=== PATIENT | female | born 2000 | race African-American/Black ===

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

== ENCOUNTER 2018-02-07 09:47 | Emergency (ER) | payer MEDICAID ==
[~2018-02-07] VITALS: Ht 149.9 cm; Wt 45.0 kg
[2018-02-07] MEDS ORDERED: TRAMADOL 50MG TABLET PO ONE (10:30)
[2018-02-07 11:03] VITALS: BP 111/61
== END 2018-02-07 13:38 | disposition home or self-care (01) ==
LOC: ER 10:31
DX: S40.021A Contusion of right upper arm, initial encounter (principal); R07.81 Pleurodynia; M54.12 Radiculopathy, cervical region; V49.59XA Passenger injured in collision with other motor vehicles in traffic accident, initial encounter; Y93.89 Activity, other specified; Y92.488 Other paved roadways as the place of occurrence of the external cause; R03.0 Elevated blood-pressure reading, without diagnosis of hypertension
CPT/HCPCS: 71101; 73080; 73090; 73130; 81025; 99283

== ENCOUNTER 2019-04-21 13:25 | Emergency (ER) | payer MEDICAID ==
[~2019-04-21] VITALS: Ht 152.4 cm; Wt 42.0 kg
[2019-04-21 13:55] VITALS: BP 116/73
[2019-04-21] MEDS ORDERED: IBUPROFEN 600MG TABLET PO ONE (16:00)
== END 2019-04-21 17:21 | disposition home or self-care (01) ==
LOC: ER 13:25
DX: J02.9 Acute pharyngitis, unspecified (principal)
CPT/HCPCS: 81025; 87070; 87430; 99283